=== PATIENT | female | born 1985 ===

== ENCOUNTER 2019-03-28 09:00 | Inpatient (IN) | payer MEDICAID, OTHER ==
[2019-03-28] MEDS ORDERED: BICITRA ORAL LIQD 30ML PO ONE (09:59)
[2019-03-28] MEDS ORDERED: METOCLOPRAMIDE 10 MG/2 ML INJ IV ONE (09:59)
[2019-03-28] MEDS ORDERED: FAMOTIDINE 20 MG/2 ML INJ IV ONE (09:59)
[2019-03-28] MEDS ORDERED: ceFAZolin/Water 2 GM/20 ML 2 GM/20 ML SYRINGE IV NR ×2 (10:00→12:00)
[2019-03-28] MEDS ORDERED: OXYTOCIN 20 UNIT/1000ML DRIP 20 UNITS/1,000 ML BAG IV SCH ×3 (10:00→14:00)
[2019-03-28] MEDS: LACTATED RINGERS 1,000 ML IV SCH ×2 (10:00→10:52)
[2019-03-28 10:53] LABS: Basophils % (Auto) 0.4 % (0.0-1.8); Eosinophils # (Auto) 0.1 K/mm3 (0.0-0.4); Eosinophils % (Auto) 1.2 % (0.0-4.3); Hemoglobin 11.5 gm/dl (10.1-14.3); Lymphocytes # (Auto) 1.5 K/mm3 (1.2-5.4); Lymphocytes % (Auto) 17.2 % (13.4-35.0); Mean Corpuscular HGB Conc 34 % (30-34); Mean Corpuscular Volume 83 fl (79-97); Monocytes # (Auto) 0.6 K/mm3 (0.0-0.8); Monocytes % (Auto) 6.4 % (0.0-7.3); Platelet Count 209 K/mm3 (140-440); Red Cell Distribution Width 15.7 % (13.2-15.2)
[2019-03-28] MEDS ORDERED: METOCLOPRAMIDE 10 MG/2 ML INJ IV SCH (11:43)
[2019-03-28] MEDS ORDERED: FAMOTIDINE 20 MG/2 ML INJ IV SCH (11:43)
[2019-03-28] MEDS ORDERED: BICITRA ORAL LIQD 30ML PO SCH (11:43)
--- NOTE | 2019-03-28 11:51 | History and Physical Report ---
History of Present Illness Date of examination: 03/28/19 Date of admission: 03/28/19 09:00 Chief complaint: Here at 39+6wks for a repeat and tubal sterilization. History of present illness: . MARYAN 03/29/2019. x2 previous cesareans and requested tubal sterilization with today's . Past History Past Medical History: no pertinent history - Obstetrical History Expected Date of Delivery: 03/29/19 Actual Gestation: 39 Week(s) 6 Day(s) : 4 Para: 2 Medications and Allergies Allergies Allergy/AdvReac Type Severity Reaction Status Date / Time No Known Allergies Allergy Verified 03/28/19 09:52 Home Medications Medication Instructions Recorded Confirmed Last Taken Type Multivitamin Tablet 1 tab PO DAILY 03/28/19 03/28/19 03/27/19 10:00 History Active Meds: Active Medications Famotidine (Pepcid) 20 mg IV ONCE ONE Stop: 03/28/19 11:44 Cefazolin Sodium (Ancef/Sterile Water 2 Gm/20 Ml) 2 gm in 20 mls @ 80 mls/hr IV PREOP NR; Protocol Stop: 03/28/19 23:59 Oxytocin/Sodium Chloride (Pitocin/Ns 20 Unit/1000ml Drip) 20 units in 1,000 mls @ 0 mls/hr IV TITR LYDIA Lactated Ringer's (Lactated Ringers) 1,000 mls @ 2,250 mls/hr IV PREOP LYDIA Stop: 03/29/19 10:27 Last Admin: 03/28/19 10:52 Dose: 2,250 mls/hr Documented by: Metoclopramide HCl (Reglan) 10 mg IV ONCE ONE Stop: 03/28/19 11:44 Review of Systems All systems: negative - Vital Signs Vital signs: Vital Signs Pulse Pulse Ox 82 96 03/28/19 09:48 03/28/19 09:48 Temp Pulse Resp BP Pulse Ox 98 F 89 16 124/56 92 03/28/19 10:17 03/28/19 11:04 03/28/19 10:17 03/28/19 10:17 03/28/19 11:04 - Physical Exam Breasts: Positive: deferred Lungs: Positive: Clear to auscultation, Normal air movement Abdomen: Positive: normal appearance, soft, distention, normal bowel sounds. Negative: tenderness Uterus: Positive: enlarged, normal contour Deep Tendon Reflex Grade: Normal +2 - Obstetrical FHR: category 1 Results Result Diagrams: 03/28/19 09:45 Abnormal lab results 03/28/19 Range/Units 09:45 RDW 15.7 H (13.2-15.2) % Seg Neutrophils % 74.8 H (40.0-70.0) % All other labs normal. Assessment and Plan - Patient Problems (1) Previous delivery affecting , antepartum Current Visit: Yes Status: Acute (2) Request for sterilization Current Visit: Yes Status: Acute Plan to address problem: Risks of repeat section [including but not limited to scars, bleeding, infections, bowel and urinary tract injuries, possible hysterectomy, scar tissue formation], were fully discussed and patient's questions were answered and patient consented to proceed with surgery. Same was the case for bilateral removal of fallopian tubes for sterilization. patient was fully aware of the finality of tubal removal and the availability of other reversible methods of contraception. She will have a section and bilateral salpingectomies.
[2019-03-28] MEDS ORDERED: LACTATED RINGERS 1,000 ML IV SCH (12:00)
[2019-03-28] MEDS ORDERED: WATER FOR IRRIG STERILE 1,500 ML BOTTLE IR ONE (12:16)
[2019-03-28] MEDS ORDERED: SODIUM CHLORIDE 0.9% IRR 1,500 ML BOTTLE IR ONE (12:16)
[2019-03-28] MEDS ORDERED: KETOROLAC 30 MG/1 ML INJ ONE (12:55)
[2019-03-28] MEDS ORDERED: ONDANSETRON 4 MG/2 ML INJ ONE (12:55)
[2019-03-28] MEDS ORDERED: fentaNYL 100 MCG/2 ML INJ ONE (13:04)
[2019-03-28] MEDS ORDERED: NALOXONE 0.4 MG/1 ML INJ IV PRN (13:33)
[2019-03-28] MEDS ORDERED: ACETAMINOPHEN 325 MG TAB PO PRN (13:33)
[2019-03-28] MEDS ORDERED: ONDANSETRON 4 MG/2 ML INJ IV PRN ×2 (13:33→13:55)
[2019-03-28] MEDS ORDERED: LANOLIN/ZINC/DIMETHICONE (LANSINOH) 7 GM TP PRN (13:33)
[2019-03-28] MEDS ORDERED: WITCH HAZEL/ GLYCERIN PAD TP PRN (13:33)
--- NOTE | 2019-03-28 13:44 | Operative Report ---
Operative Report Operative Report: Date of surgery: 03/28/2019 Preoperative diagnoses: Term , previous sections, request for sterilization Postoperative diagnoses: The same. Operation: Lower segment transverse delivery, bilateral salpingectomies Surgeon:Evan Lagunas MD Policy Analyst: WAYNE Gaines Anesthesia: Spinal block Estimated blood loss: 700 mL Complications: None Findings: There was a live baby girl in cephalic presentation, weighing 8 lbs. 3 oz. with Apgars 8/9. There were no adhesions within the lower abdomen and pelvis. Both ovaries and fallopian tubes were grossly normal as was the uterus. Procedure in detail: The patient was taken to the operating room and given a spinal block. Patient was placed in the straight supine position and a Kerr catheter was inserted. The patient was prepped in the abdomen. The drapes were placed. A timeout was done. With the go ahead from the certified green building engineer, a Pfannenstiel incision was made. This incision was carried across the subcutaneous layer to the fascia which was also divided transversely. The recti abdominis muscle flaps were stripped from the fascia using a combination of blunt and sharp dissections. The muscles were in the midline to gain access to the anterior parietal peritoneum which was divided after excluding any underlying viscera. The access to the peritoneal cavity was then widened by manual stretching. The bladder blade was applied. The utero vesicle peritoneal flap was divided transversely allowing the bladder to be displaced caudally. The uterine incision was placed in the lower segment transversely. The uterine incision was carried to the decidual layer. The uterine incision was extended on both sides using the bandage scissors. The amniotic sac was ruptured with clear fluid. The head was lifted out of the false maternal pelvis and delivered through the incision using fundal pressure and I assisted by the vacuum cup. The airways were bulb suctioned beginning with the mouth. Continuing fundal pressure combined with traction on the mandibular processes of the jaw delivered the rest of the baby. The umbilical cord was double clamped and divided. The baby was carefully transferred to the pediatric team. The placenta was manually removed from the uterine cavity. The uterine cavity was explored and was empty of any placental remnants. The uterine incision was repaired in 2 layers with #1 Vicryl. The surgical line on the uterus was hemostatic. Blood and clots were cleared from the peritoneal cavity. Each fallopian she was excised from the fimbrial end to the cornual aspect of the uterus using the Enseal. The Enseal was used to thermally coagulate and divide the meso salpingitis on both sides. Hemostasis was satisfactory. The anterior parietal peritoneum was repaired with #1 Vicryl. The fascia was repaired with #1 Vicryl. The subcutaneous layer was made hemostatic using the Bovie before the skin was closed subcuticularly with 4-0 Vicryl. There were no complications. The estimated blood loss was 700 mL. All sponges and instrument counts were correct. Patient was safely transferred to the recovery room.
--- NOTE | 2019-03-28 13:54 | Anesthesia Day of Surgery ---
Anesthesia Day of Surgery - Day of Surgery Patient Examined: Yes Patient H&P Reviewed: Yes Patient is NPO: Yes Beta Blockers: No Cardiac Clearance: No Pulmonary Clearance: No Parag's Test: N/A
--- NOTE | 2019-03-28 13:54 | Anesthesia Consultation ---
Anesthesia Consult and Med Hx Date of service: 03/28/19 - Airway Anesthetic Teeth Evaluation: Good ROM Head & Neck: Adequate Mental/Hyoid Distance: Adequate Mallampati Class: Class III Intubation Access Assessment: Probably Good - Pulmonary Exam CTA: Yes - Cardiac Exam Cardiac Exam: RRR - Pre-Operative Health Status ASA Pre-Surgery Classification: ASA3 Proposed Anesthetic Plan: Spinal - Pulmonary Hx Smoking: No Hx Asthma: No Hx Respiratory Symptoms: No SOB: No COPD: No Home Oxygen Therapy: No Hx Pneumonia: No Hx Sleep Apnea: No - Cardiovascular System Hx Hypertension: No Hx Coronary Artery Disease: No Hx Heart Attack/AMI: No Hx Angina: No Hx Percutaneous Transluminal Coronary Angioplasty (PTCA): No Hx Cardia Arrhythmia: No Hx Pacemaker: No Hx Internal Defibrillator: No Hx Valvular Heart Disease: No Hx Heart Murmur: No Hx Peripheral Vascular Disease: No - Central Nervous System Hx Neuromuscular Disorder: No Hx Seizures: No CVA: No Hx Back Pain: No Hx Psychiatric Problems: No - Gastrointestinal Hx Ulcer: No Hx Gastroesophageal Reflux Disease: Yes - Endocrine Hx Renal Disease: No Hx End Stage Renal Disease: No Hx Cirrhosis: No Hx Liver Disease: No Hx Insulin Dependent Diabetes: No Hx Non-Insulin Dependent Diabetes: No Hx Thyroid Disease: No Hx Hypothyroidism: No Hx Hyperthyroidism: No - Hematic Hx Anemia: No Hx Sickle Cell Disease: No - Other Systems Hx Alcohol Use: No Hx Substance Use: No Hx Cancer: No Hx Obesity: Yes
[2019-03-28] MEDS ORDERED: HYDROmorphone 1 MG/1 ML INJ IV PRN ×2 (13:55)
[2019-03-28] MEDS ORDERED: PROMETHAZINE 25 MG TAB PO PRN (13:55)
[2019-03-28] MEDS ORDERED: PROMETHAZINE 25 MG RECT SUPP PR PRN (13:55)
--- NOTE | 2019-03-28 13:55 | Post Anesthesia Evaluation ---
- Post Anesthesia Evaluation Patient Participated: Yes Airway Patent: Yes Stable Respiratory Function: Yes Nausea/Vomiting: No Temp > 96.8F: Yes Pain Manageable: Yes Adequeate Hydration: Yes Anesthesia Complications: No Block Receding Appropriately: Yes Patient on Ventilator: No
[2019-03-28] MEDS ORDERED: LACTATED RINGERS 1,000 ML IV ONE (16:00)
[2019-03-28] MEDS: MORPHINE 4 MG/1 ML INJ IV PRN ×2 (16:10→21:53)
[2019-03-28] MEDS: KETOROLAC 30 MG/1 ML INJ IV PRN (19:51)
[2019-03-28] MEDS: ceFAZolin/NS 1 GM/50 ML 1 GM/50 ML BAG IV SCH (19:54)
[2019-03-29 02:05] LABS: Hematocrit 29.4 % (30.3-42.9); Hemoglobin 9.8 gm/dl (10.1-14.3)
[2019-03-29] MEDS: KETOROLAC 30 MG/1 ML INJ IV PRN (04:03)
[2019-03-29] MEDS: ceFAZolin/NS 1 GM/50 ML 1 GM/50 ML BAG IV SCH (04:03)
[2019-03-29] MEDS: FERROUS SULFATE 325 MG TAB PO SCH (08:34)
[2019-03-29] MEDS: PRENATAL VIT27-FE FUMARATE-FOLIC ACID VIT TAB PO SCH (08:34)
[2019-03-29] MEDS: MORPHINE 4 MG/1 ML INJ IV PRN (08:35)
[2019-03-29] MEDS: oxyCODONE /ACETAMINOPHEN 5-325MG TAB PO PRN (14:04)
[2019-03-29] MEDS: IBUPROFEN 800 MG TAB PO PRN ×2 (14:04→23:27)
--- NOTE | 2019-03-29 14:05 | Progress Note ---
Assessment and Plan - Patient Problems (1) S/P repeat low transverse Current Visit: Yes Status: Acute Plan to address problem: POD 1 - pain poorly controlled Continue routine postop orders IV pain medications discontinued and PO pain medication initiated Use of abdominal binder, ambulation encouraged as tolerated Anticipate discharge in 24-48 hours (2) S/P tubal ligation Current Visit: Yes Status: Acute (3) Anemia due to blood loss, acute Current Visit: Yes Status: Acute Plan to address problem: Asymptomatic Continue iron therapy Subjective - Subjective Date of service: 03/29/19 Principal diagnosis: POD #1; s/p Repeat LTCS and BTL Interval history: see H&P and Operative Report Patient reports: appetite normal, voiding normally, pain well controlled, ambulating normally, no dizzy ambulation, no flatus : doing well, nursing well Objective - Vital Signs Latest vital signs: Vital Signs Temp Pulse Resp BP BP Pulse Ox 03/29/19 08:55 98.7 F 73 20 116/69 94 03/29/19 08:35 20 03/29/19 05:52 98.9 F 71 18 116/65 95 03/29/19 01:01 98.3 F 78 18 122/55 97 03/28/19 20:15 98.2 F 74 18 110/50 96 03/28/19 15:33 97.7 F 68 18 125/70 125/70 99 03/28/19 15:09 98.2 F 70 20 120/54 03/28/19 14:45 68 20 103/41 03/28/19 14:30 68 20 117/55 03/28/19 14:15 70 22 118/52 Intake and Output 03/28/19 03/29/19 03/29/19 23:59 07:59 15:59 Intake Total 490 360 600 Output Total 400 200 Balance 90 160 600 Intake: IV 50 ANCEF/NS 1 GM/50 ML 1 gm 50 In 50 ml @ 100 mls/hr IV Q8H [facility] Rx#:[id number] Oral 440 240 600 Intake, Free Water 120 Output: Urine 400 200 Indwelling Catheter 400 Void 200 Other: Total, Intake Amount 120 240 600 Total, Output Amount 400 200 # Voids Indwelling Catheter 300 Void 1 - Exam Cardiovascular: Present: Regular rate Lungs: Present: Clear to auscultation Abdomen: Present: normal appearance, soft Vulva: both: normal Uterus: Present: normal, firm, fundal height at umbilicus Extremities: Present: normal Incision: Present: normal, dry, intact, dressed Comments: scant lochia - Labs Labs: Abnormal lab results 03/29/19 Range/Units 01:28 Hgb 9.8 L (10.1-14.3) gm/dl Hct 29.4 L (30.3-42.9) %
[2019-03-30] MEDS: oxyCODONE /ACETAMINOPHEN 5-325MG TAB PO PRN ×3 (06:38→19:01)
[2019-03-30] MEDS: PRENATAL VIT27-FE FUMARATE-FOLIC ACID VIT TAB PO SCH (09:30)
[2019-03-30] MEDS: FERROUS SULFATE 325 MG TAB PO SCH (09:30)
--- NOTE | 2019-03-30 10:17 | Progress Note ---
Assessment and Plan A: /postop day 2 S/P repeat low transverse section with BTL. Anemia secondary to blood loss. P: Continue ambulation. Encouraged po intake of warm liquids. Continue iron supplementation. Subjective - Subjective Date of service: 03/30/19 Principal diagnosis: POD #2; s/p Repeat LTCS and BTL Interval history: /postop day 2 S/P repeat low transverse section with BTL. Patient is doing well. Patient reports small amount of lochia. She states her incisional pain is improving. Not passing gas yet. Ambulating well, voiding without difficulty. Patient denies headache, cough, shortness of breath, chest pain, abdominal pain, leg pain, nausea or vomiting, or heavy bleeding. Patient reports: appetite normal, voiding normally, pain well controlled, ambulating normally, no dizzy ambulation, no flatus, no nauseated [place]: doing well Objective - Vital Signs Latest vital signs: Vital Signs Temp Pulse Resp BP Pulse Ox 03/30/19 07:42 98.6 F 68 18 101/41 95 03/29/19 23:50 98.3 F 71 16 128/68 97 03/29/19 17:44 97.8 F 61 20 139/83 95 03/29/19 14:04 20 Intake and Output 03/29/19 03/30/19 03/30/19 23:59 07:59 15:59 Intake Total 1080 480 Balance 1080 480 Intake: Oral 360 Intake, Free Water 720 480 Other: Total, Intake Amount 360 # Voids Void 2 2 - Exam Cardiovascular: Present: Regular rate, Normal S1, Normal S2 Lungs: Present: Clear to auscultation Abdomen: Present: normal appearance, soft, normal bowel sounds. Absent: distention, tenderness, guarding, rigidity Uterus: Present: normal, firm, fundal height below umbilicus. Absent: bogginess, tenderness Extremities: Present: normal, edema (mild bilateral pedal edema). Absent: tenderness Incision: Present: normal, dry, intact
[2019-03-31] MEDS: oxyCODONE /ACETAMINOPHEN 5-325MG TAB PO PRN ×3 (00:30→19:46)
--- NOTE | 2019-03-31 10:06 | Progress Note ---
Assessment and Plan - Patient Problems (1) S/P repeat low transverse Current Visit: Yes Status: Acute Plan to address problem: Continue routine PP orders Dulcolax suppository x 1 dose Increase water intake Continue to ambulate in hallways Clear liquid diet until passing gas Anticipate D/C home tomorrow if passing gas or moving bowels (2) S/P tubal ligation Current Visit: Yes Status: Acute (3) Anemia due to blood loss, acute Current Visit: Yes Status: Acute Plan to address problem: Continue daily oral iron supplementation Increase iron rich foods into diet Subjective - Subjective Date of service: 03/31/19 Principal diagnosis: POD #3; s/p Repeat LTCS and BTL Interval history: See admission H & P; OB operative note and PP progress notes Patient reports: appetite normal, voiding normally, pain well controlled (with medications), ambulating normally (in room and in hallways), no flatus, no bowel movement : doing well () Objective - Vital Signs Latest vital signs: Vital Signs Temp Pulse Resp BP Pulse Ox 03/31/19 08:17 99.6 F 74 18 124/62 96 03/30/19 23:56 98.0 F 75 20 133/81 94 03/30/19 16:45 98.9 F 64 18 113/62 94 Intake and Output 03/30/19 03/31/19 03/31/19 23:59 07:59 15:59 Intake Total 240 240 Balance 240 240 Intake: Oral 240 240 Other: Total, Intake Amount 240 240 # Voids Void 1 1 - Exam Breasts: Present: normal Cardiovascular: Present: Regular rate Lungs: Present: Normal air movement Abdomen: Present: soft, tenderness, abnormal bowel sounds (hypoactive bowel sounds) Uterus: Present: firm, fundal height below umbilicus (U-1) Extremities: Present: edema (ankles with slight edema) Deep Tendon Reflex Grade: Normal +2 Incision: Present: dry, intact (no signs of infection noted)
[2019-03-31] MEDS: PRENATAL VIT27-FE FUMARATE-FOLIC ACID VIT TAB PO SCH ×2 (11:12→11:17)
[2019-03-31] MEDS: FERROUS SULFATE 325 MG TAB PO SCH ×2 (11:12→11:17)
[2019-04-01] MEDS: IBUPROFEN 800 MG TAB PO PRN ×2 (00:06→10:16)
[2019-04-01] MEDS: oxyCODONE /ACETAMINOPHEN 5-325MG TAB PO PRN (05:26)
--- NOTE | 2019-04-01 09:53 | Progress Note ---
Assessment and Plan - Patient Problems (1) S/P repeat low transverse Current Visit: Yes Status: Acute Plan to address problem: POD 4 - stable Continue routine postop orders Discharge home today Follow-up at [facility] as needed or in 1 week for incision check (2) S/P tubal ligation Current Visit: Yes Status: Acute (3) Anemia due to blood loss, acute Current Visit: Yes Status: Acute Plan to address problem: Asymptomatic Continue iron therapy Encouraged iron-rich foods Subjective - Subjective Date of service: 04/01/19 Principal diagnosis: POD #3; s/p Repeat LTCS and BTL Interval history: see H&P, Operative Report and PP/BODY ENGINEER Progress Notes Patient reports: appetite normal, voiding normally, pain well controlled, flatus, ambulating normally, no dizzy ambulation, no bowel movement [place]: doing well, nursing well Objective - Vital Signs Latest vital signs: Vital Signs Temp Pulse Resp BP BP Pulse Ox 04/01/19 05:26 20 04/01/19 00:06 20 04/01/19 00:00 98.0 F 74 18 125/68 99 03/31/19 19:46 20 03/31/19 16:47 98.9 F 65 20 128/66 95 03/31/19 11:11 20 Intake and Output 03/31/19 04/01/19 04/01/19 23:59 07:59 15:59 Intake Total 1320 240 Balance 1320 240 Intake: Oral 600 240 Intake, Free Water 720 Other: Total, Intake Amount 240 240 # Voids Void 3 1 - Exam Cardiovascular: Present: Regular rate Lungs: Present: Clear to auscultation, Normal air movement Abdomen: Present: normal appearance, soft Vulva: both: normal Uterus: Present: normal, firm, fundal height below umbilicus Extremities: Present: normal Incision: Present: normal, dry, intact, other (setri strips in place) Comments: scant lochia
--- NOTE | 2019-04-01 09:58 | Discharge Summary ---
Providers - Providers Date of Admission: 03/28/19 09:00 Date of discharge: 04/01/19 Attending physician: MARIBEL MCGRATH MD Primary care physician: MARIBEL MCGRATH MD Hospitalization Reason for admission: section, IUP at term Delivery: Procedure: bilateral tubal ligation, repeat low transverse Episiotomy: none Laceration: none Incision: normal, dry, intact, other (steri strips in place) Other procedures: tubal ligation complications: none Discharge diagnosis: IUP at term delivered baby: female Hospital course: Uncomplicated Condition at discharge: Stable Disposition: TO HOME OR SELFCARE - Discharge Diagnoses (1) S/P repeat low transverse Status: Acute (2) S/P tubal ligation Status: Acute (3) Anemia due to blood loss, acute Status: Acute Comment: Asymptomatic Continue iron therapy Eat iron-rich foods Plan - Discharge Medications Prescriptions: Ferrous Sulfate [Feosol 325 MG tab] 325 mg PO QDAY #30 tablet Ibuprofen [Motrin 800 MG tab] 800 mg PO Q6H PRN #30 tablet PRN Reason: Pain, Mild (1-3) HYDROcodone/APAP 5-325 [[place] 5/325] 102 each PO Q4HR PRN #30 tablet PRN Reason: Pain - Provider Discharge Summary Activity: routine, no sex for 6 weeks, no heavy lifting 4 weeks, no strenuous exercise Diet: routine Instructions: routine Additional instructions: [] Smoking cessation referral if applicable(refer to patient education folder for contact #) [] Refer to [facility]'s [facility] Booklet Call your doctor immediately for: * Fever > 100.5 * Heavy vaginal bleeding ( >1 pad per hour) * Severe persistent headache * Shortness of breath * Reddened, hot, painful area to leg or breast * Drainage or odor from incision. * Keep incision clean and dry at all times and follow doctor's instructions regarding bathing/showering - Follow up plan Follow up: MARIBEL MCGRATH MD [Primary Care Provider] - 7 Days (Follow up at [facility] as needed or in 1 week for incision check) Forms: [facility] Discharge Summary, Discharge Signature Page
[2019-04-01] MEDS: PRENATAL VIT27-FE FUMARATE-FOLIC ACID VIT TAB PO SCH (10:16)
[2019-04-01] MEDS: FERROUS SULFATE 325 MG TAB PO SCH (10:16)
[2019-04-01 14:12] VITALS: BP 131/56
== END 2019-04-01 13:45 | disposition home or self-care (01) | DRG 765 ==
LOC: APU 09:00 → OB 15:44
PROVIDERS: ADMIT Obstetrics & Gynecology; ATTEND Obstetrics & Gynecology
PROC: 10D00Z1 Extraction of Products of Conception, Low, Open Approach (ICD-10-PCS; principal; 2019-03-28)
PROC: 0UB70ZZ Excision of Bilateral Fallopian Tubes, Open Approach (ICD-10-PCS; 2019-03-28)
DX: O34.211 Maternal care for low transverse scar from previous cesarean delivery (principal); D62 Acute posthemorrhagic anemia; Z3A.39 39 weeks gestation of pregnancy; Z37.0 Single live birth; O90.81 Anemia of the puerperium; K21.9 Gastro-esophageal reflux disease without esophagitis; E66.9 Obesity, unspecified; O99.62 Diseases of the digestive system complicating childbirth; O99.214 Obesity complicating childbirth
CPT/HCPCS: 36415; 85014; 85018; 85025; 86850; 86900; 86901; 88302; G0378; J0690; J1885; J2270; J2405; J2590; J2765; J3010; J7120